=== PATIENT | male | born 1975 | race Caucasian/White ===

== ENCOUNTER 2017-05-09 18:11 | Emergency (ER) | payer MEDICAID ==
[2017-05-09] MEDS ORDERED: Sodium Chloride 0.9% 1,000 ML IV ONE (18:35)
[2017-05-09] MEDS ORDERED: Sodium Chloride 0.9% 250 ML IV ONE (18:40)
--- NOTE | 2017-05-09 18:48 | C.PDOC ---
History Of Present Illness Patient is a 41 y/o male who presents to the ED with complaints of nausea and vomiting since last night. Patient awoke this morning with a persistent headache , prompting ED visit. 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 Denies ongoing medical problems, abdominal pain, diarrhea, fever or chills. Patient also notes feeling nauseous all day today; attempted to drink liquids but subsequently vomited approximately 1 hour ago. No other physical complaints at this time. Time Seen by Provider: 05/09/17 18:29 Chief Complaint (Nursing): Headache History Per: Patient History/Exam Limitations: no limitations Onset/Duration Of Symptoms: Hrs (last night) Current Symptoms Are (Timing): Still Present Recent travel outside of the [place]: No Past Medical History Reviewed: Historical Data, Nursing Documentation, Vital Signs Vital Signs: Last Vital Signs Temp 98.5 F 05/09/17 19:47 Pulse 82 05/09/17 19:47 Resp 20 05/09/17 19:47 BP 107/70 05/09/17 19:47 Pulse Ox 99 05/09/17 19:47 - Medical History PMH: No Chronic Diseases Other Surgeries: VOCATIONAL NURSE shunt placed as infant and revised in 1995 - [facility] Procedures REMOVAL FB FROM FOOT (01/06/13) TETANUS TOXOID ADMINIST (01/06/13) Family History: States: No Known Family Hx - Social History Hx Tobacco Use: No Hx Alcohol Use: No Hx Substance Use: No - Immunization History Hx Tetanus Toxoid Vaccination: No Review Of Systems Constitutional: Negative for: Fever, Chills Gastrointestinal: Positive for: Nausea, Vomiting. Negative for: Abdominal Pain , Diarrhea Physical Exam - Physical Exam Appears: No Acute Distress Skin: Normal Color, Warm, Dry Head: Atraumatic, Normacephalic Oral Mucosa: Dry Neck: Supple Cardiovascular: Rhythm Regular, No Murmur Respiratory: Normal Breath Sounds, No Rales, No Rhonchi, No Wheezing Gastrointestinal/Abdominal: Soft, No Tenderness Neurological/Psych: Oriented x3, Normal Speech, Normal Cognition, Other (no focal deficits) ED Course And Treatment - Laboratory Results Result Diagrams: 05/09/17 19:04 05/09/17 19:01 Lab Interpretation: No Acute Changes O2 Sat by Pulse Oximetry: 98 Pulse Ox Interpretation: Normal - CT Scan/US CT Head Other Rad Studies (CT/US): Read By Radiologist, Radiology Report Reviewed CT/US Interpretation: Accession No. : [id number]. Patient Name / ID : DAVION CAPPS / [id number]. Exam Date : 05/09/2017 19:14:26 ( Approved ). Study Comment : Sex / Age : M / 41Y. Creator : Rachelle Ocampo MD. Dictator : Club Lounge Attendant : Shipping/Receiving Clerk : Rachelle Ocampo MD. Approver2 : Report Date : 20:08:00. My Comment : . [facility] Division of Radiology. [address] [place] [address]. Tel. no. . . . Patient Name: GÉNESIS RICARDO . Pt. Address: [address] [place] [address]. Rec #: [id number]. [place] [address]: Danie LAMBERT,Phoebe Kellogg. Pt Order Location: [facility] : 1975 Male Age: 41 Order #: [id number]. Accession # : [id number]. Reason for exam: R/O Bleed. . . . . . CT Scan. . . HEAD W/O CONTRAST Exam Date: 05/09/17. . This imaging exam was performed at [facility] (Formerly [facility]). EXAM: CT Head Without Intravenous Contrast. . CLINICAL HISTORY: 41 years old, male; Pain; Headache and other: R/O bleed; Prior surgery. . TECHNIQUE: Axial computed tomography images of the head/brain without intravenous. contrast. All CT scans at this facility use one or more dose reduction. techniques, viz.: automated exposure control; ma/kV adjustment per patient size. (including targeted exams where dose is matched to indication; i.e. head); or. iterative reconstruction technique. Coronal and sagittal reformatted images were created and reviewed. . COMPARISON: No relevant prior studies available. . FINDINGS: Brain/ ventricles: Right parietal approach shunt noted, tip appears to be in. expected position. Associated artifact limits evaluation. No hemorrhage. No. significant white matter disease. No edema. No hydrocephalus. Bones: Skull is intact. Sinuses: No acute sinusitis. Mastoid air cells: No mastoid effusion. . IMPRESSION: No CT evidence of acute intracranial abnormality. Right parietal approach shunt noted, tip appears to be in expected position. Associated artifact limits evaluation. Recommend correlation with prior imaging. . Dictated By: Rachelle Ocampo MD. Dictated Date/Time: 05/09/172007. Signed By: Rachelle Ocampo. Date Signed: 05/09/172007. Transcribed By: [facility]. Transcribe Date/Time: 05/09/172007. [facility] Progress Note: Head CT, blood work, and UA ordered. [place] and IV fluids administered. Reevaluation Time: 20:22 Reassessment Condition: Improved Disposition Counseled Patient/Family Regarding: Studies Performed, Diagnosis, Need For Followup, Rx Given - Disposition Referrals: [facility] [Outside] Disposition: HOME/ ROUTINE Disposition Time: 20:26 Condition: IMPROVED Prescriptions: Ondansetron ODT [Zofran ODT] 1 odt PO QID PRN #10 odt PRN Reason: Nausea/Vomiting Instructions: Nausea and Vomiting, Adult Forms: [facility] ([employer]) - Clinical Impression Clinical Impression: Nausea and vomiting - Scribe Statement The provider has reviewed the documentation as recorded by the Scribe Hetal Mallory All medical record entries made by the Scribe were at my direction and personally dictated by me. I have reviewed the chart and agree that the record accurately reflects my personal performance of the history, physical exam, medical decision making, and the department course for this patient. I have also personally directed, reviewed, and agree with the discharge instructions and disposition.
[2017-05-09 18:56] LABS: BASO % 0.2 % (0.0-2.0); EOS % 0.1 % (0.0-4.0); HEMOGLOBIN 15.5 g/dL (12.0-18.0); LYMPH # 0.3 K/uL (1.0-4.3); LYMPH % 3.7 % (20.0-40.0); MEAN CELL VOLUME 89.1 fL (80.0-94.0); MEAN CORPUSCULAR HEMOGLOBIN 30.1 pg (27.0-31.0); MEAN CORPUSCULAR HGB CONC 33.8 g/dL (33.0-37.0); MEAN PLATELET VOLUME 8.7 fL (7.2-11.7); MONO # 0.4 K/uL (0.0-0.8); MONO % 4.6 % (0.0-10.0); NEUT # 8.7 K/uL (1.8-7.0); NEUT % 91.4 % (50.0-75.0); PLATELET COUNT 242 K/uL (130-400); RBC 5.14 Mil/uL (4.40-5.90); WHITE BLOOD COUNT 9.5 K/uL (4.8-10.8)
[2017-05-09 19:22] LABS: ALB/GLOB RATIO 1.1 (1.0-2.1); ALBUMIN 4.7 g/dL (3.5-5.0); ALT/SGPT 27 U/L (21-72); AST/SGOT 46 U/L (17-59); BLOOD UREA NITROGEN 12 mg/dL (9-20); CALCIUM 9.1 mg/dl (8.6-10.4); GFR AFRICAN-AMERICAN > 60; GFR NON-AFRICAN AMERICAN > 60
--- NOTE | 2017-05-09 20:08 | CT ---
EXAM: CT Head Without Intravenous Contrast CLINICAL HISTORY: 41 years old, male; Pain; Headache and other: R/O bleed; Prior surgery TECHNIQUE: Axial computed tomography images of the head/brain without intravenous contrast. All CT scans at this facility use one or more dose reduction techniques, viz.: automated exposure control; ma/kV adjustment per patient size (including targeted exams where dose is matched to indication; i.e. head); or iterative reconstruction technique. Coronal and sagittal reformatted images were created and reviewed. COMPARISON: No relevant prior studies available. FINDINGS: Brain/ventricles: Right parietal approach shunt noted, tip appears to be in expected position. Associated artifact limits evaluation. No hemorrhage. No significant white matter disease. No edema. No hydrocephalus. Bones: Skull is intact. Sinuses: No acute sinusitis. Mastoid air cells: No mastoid effusion. IMPRESSION: No CT evidence of acute intracranial abnormality. Right parietal approach shunt noted, tip appears to be in expected position. Associated artifact limits evaluation. Recommend correlation with prior imaging.
[2017-05-09 20:18] LABS: SQUAMOUS EPITHIAL < 1 /hpf (0-5); URINE BACTERIA RARE (<OCC); URINE BILIRUBIN NEGATIVE (NEGATIVE); URINE BLOOD NEGATIVE (NEGATIVE); URINE CLARITY Clear (Clear); URINE COLOR Yellow (YELLOW); URINE GLUCOSE (UA) NORMAL (Normal); URINE LEUKOCYTE ESTERASE NEG Leu/uL (Negative); URINE PROTEIN NEGATIVE (NEGATIVE)
[2017-05-09 20:26] VITALS: O2SAT 98
[2017-05-09 20:32] LABS: BANDS 1 % (0-2); LYMPHOCYTE 3 % (20-40); MONOCYTE 3 % (0-10); NEUTROPHIL 93 % (50-75); PLATELET ESTIMATE NORMAL (NORMAL); TOTAL CELLS COUNTED 100
[2017-05-09 20:34] VITALS: BP 135/69; PULSE 78; RESP 16; TEMP 98
== END 2017-05-09 20:34 | disposition home or self-care (01) ==
LOC: C.ER 18:11
DX: R11.2 Nausea with vomiting, unspecified (principal)
CPT/HCPCS: 70450; 80053; 81001; 85025; 96374; 99285; J2765; J7040